=== PATIENT | female | born 1950 | race Caucasian/White ===

== ENCOUNTER → 2017-01-05 | Outpatient (CLI) | payer MEDICARE ==
--- NOTE | 2017-01-05 11:41 | US ---
EXAMINATION TYPE: US abdomen complete DATE OF EXAM: 01/05/2017 10:14 AM COMPARISON: NONE CLINICAL HISTORY: R10.9 ABD PAIN. Stomach and bowel issues, cholecystectomy, rt flank pain EXAM MEASUREMENTS: Liver Length: 11.7 cm Gallbladder Wall: N/A CBD: 0.7 cm Spleen: 7.3 cm Right Kidney: 9.2 x 3.7 x 3.9 cm Left Kidney: 9.5 x 4.7 x 4.9 cm Pancreas: tail obscured by bowel gas but areas seen appear wnl Liver: wnl Gallbladder: surgically absent CBD: wnl Spleen: wnl Right Kidney: 4.1cm complex cystic area seen, posterior enhancement noted Left Kidney: wnl Upper IVC: wnl Abd Aorta: wnl The liver is homogenous. The intrahepatic portion of the IVC and visualized abdominal aorta are with in normal limits. Gallbladder is surgically absent. Common bile duct is unremarkable after cholecyst ectomy. The visualized portions of the pancreas are homogenous. The spleen is unremarkable. Kidney s are free of hydronephrosis. Lower pole level right kidney there is partially exophytic heterogeneou s hypoechoic lesion with increased through transmission measuring 4.1 x 3.5 x 3.6 cm could reflect de bris-filled cyst but solid lesion or neoplasm needs to be excluded and follow-up is advised. IMPRESSION: A 4.1 cm nonsimple cyst lower pole level right kidney noted, favor hemorrhagic or protein aceous cyst. Solid lesion or neoplasm is not excluded. Follow-up multiphasic contrast-enhanced renal protocol CT or MRI is advised to better evaluate and characterize.
--- NOTE | 2017-01-05 11:42 | US ---
EXAMINATION TYPE: US pelvic complete DATE OF EXAM: 01/05/2017 9:03 AM COMPARISON: NONE CLINICAL HISTORY: R10.9 ABD CHANDANA; chronic UTI TECHNIQUE: Transabdominal (TA) pelvic ultrasound. Date of LMP: NA EXAM MEASUREMENTS: Uterus: 3.7 x 2.6 x 1.6 cm Endometrial Stripe: 0.2 cm Right Ovary: 1.8 x 1.3 x 0.8 cm Left Ovary: 1.6 x 1.3 x 1.0 cm 1. Uterus: Anteverted 2. Endometrium: wnl post menopause 3. Right Ovary: wnl 4. Left Ovary: wnl 5. Bilateral Adnexa: wnl 6. Posterior cul-de-sac: wnl 7. Bladder is wnl; bilateral ureteral jets were seen and post void bladder volume = 9.0ml (wnl). Bladder is well-distended without suspicious intraluminal mass or wall thickening. Bilateral distal u reter jets are noted. Minimal residual urine is seen after voiding. IMPRESSION: Unremarkable study.
== END | disposition home or self-care (01) ==
LOC: RADUSWWP 08:53
PROVIDERS: ATTEND Internal Medicine Gastroenterology
DX: N28.1 Cyst of kidney, acquired (principal); R10.9 Unspecified abdominal pain
CPT/HCPCS: 76700; 76856

== ENCOUNTER → 2017-01-21 | Outpatient (CLI) | payer MEDICARE ==
[2017-01-21 11:30] LABS: Blood Urea Nitrogen 20 mg/dL (7-17); Non-African American GFR(MDRD) >60 (>60 ml/min/1.73 sqM)
--- NOTE | 2017-01-21 13:34 | CT ---
EXAMINATION TYPE: CT urogram wo/w con DATE OF EXAM: 01/21/2017 1:13 PM COMPARISON: NONE INDICATION: Hematuria DLP: 643.30 mGycm, Automated exposure control for dose reduction was used. CONTRAST: 100 ml mL of Omnipaque 300. Study performed without Oral Contrast TECHNIQUE: Axial images were obtained from above the diaphragm to the pubic rami in the axial plane a t 5 mm thick sections. Reconstructed images are reviewed on the computer in the coronal plane. FINDINGS: Limited CT sections are obtained the lung bases. The lung bases are clear. CT ABDOMEN: Liver: Normal Spleen: Normal Pancreas: Normal Adrenal glands: The adrenal glands are normal. Gallbladder: Surgically absent Kidneys: No masses are evident. No hydronephrosis is present. There is a 2.9 cm cyst measuring 14 H [place] units along the inferior anterior pole right kidney. There is a retrocaval right renal deion ry. A 0.3 cm calcification is within the mid upper right kidney. 0.2 cm calcifications at the inferior po le right kidney. A posterior mid pole right kidney calcification may also be present measuring 0.3 cm . No hydronephrosis is evident. No left renal stones are identified. Ureters follow a normal caliber course and contour to the urinary bladder on the axial images. Three- D reconstructed images are reviewed which are unremarkable. Kidneys renal collecting system and urete rs fill normal on the Three-D reconstructed images. Aorta: Vascular calcification is within the aorta. There is somewhat tortuous with the scoliosis. Inferior vena cava: Normal. CT PELVIS: Loops of bowel within the abdomen and pelvis are normal. Appendix: Not identified Urinary bladder: Normal. Genitourinary structures: Uterus and ovaries are not identified. Osseous structures: No suspicious lytic or sclerotic lesions. Right hip prosthesis is present. Facet changes are through the lumbar spine. Spondylosis is within the visualized spine. IMPRESSIONS: 1. Nonobstructing right renal stones. 2. Urogram portion of the study appears normal. 3. Right renal cyst
== END | disposition home or self-care (01) ==
LOC: RADCTMAIN 10:55
PROVIDERS: ATTEND Urology
DX: N20.0 Calculus of kidney (principal); N28.1 Cyst of kidney, acquired
CPT/HCPCS: 82565; 84520; 74178; 36415; 74400; Q9967

== ENCOUNTER → 2017-08-04 | Outpatient (CLI) | payer MEDICARE ==
--- NOTE | 2017-08-04 12:59 | FL ---
EXAMINATION TYPE: FL barium swallow DATE OF EXAM: 08/04/2017 CLINICAL HISTORY: Dysphagia and globus sensation TECHNIQUE: A double contrast esophagram is performed utilizing air and barium. A total of 1.2 minut es of fluoroscopic time was utilized during procedure with 98 images saved. COMPARISON: None FINDINGS: The esophagus shows normal motility and emptying into the stomach on supine imaging with de layed secondary wave and tertiary contractions on supine imaging resulting in blunted propulsion with a need for upright positioning to pass residual ingested barium. No evidence of hiatal hernia or st ricture noted. Multilevel protrusions current osteophytes are seen of the anterior cervical spine chito cing impression upon the posterior esophagus at multiple levels. No significant gastroesophageal refl ux was seen during real time performance of this study. IMPRESSION: 1. No evidence of esophageal stricture or focal outpouching. Protuberant anterior osteophytes impress upon the posterior esophagus at multiple levels and may contribute to the patient's globus sensation and dysphasia. 2. Findings suggestive of presbyesophagus.
== END | disposition home or self-care (01) ==
LOC: RADFLWHC 10:21
PROVIDERS: ATTEND Family Medicine
DX: R07.0 Pain in throat (principal)
CPT/HCPCS: 74220

== ENCOUNTER → 2018-02-02 | Outpatient (CLI) | payer MEDICARE ==
--- NOTE | 2018-02-03 10:40 | MM ---
Reason for exam: screening (asymptomatic). Last mammogram was performed 1 year and 3 months ago. History: Patient is postmenopausal, has history of other cancer at age 58, and is nulliparous. Physical Findings: A clinical breast exam by your physician is recommended on an annual basis and results should be correlated with mammographic findings. MG 3D Screening Mammo W/Cad Bilateral CC and MLO view(s) were taken. Prior study comparison: November 11, 2016, mammogram, performed at [facility]. November 04, 2015, mammogram, performed at [facility]. The breast tissue is heterogeneously dense. This may lower the sensitivity of mammography. No significant changes when compared with prior studies. ASSESSMENT: Benign, BI-RAD 2 RECOMMENDATION: Routine screening mammogram of both breasts in 1 year.
== END | disposition home or self-care (01) ==
LOC: RADMAMWWP 12:52
PROVIDERS: ATTEND Obstetrics & Gynecology
DX: Z12.31 Encounter for screening mammogram for malignant neoplasm of breast (principal)
CPT/HCPCS: 77063; 77067

== ENCOUNTER → 2018-07-19 | Outpatient (CLI) | payer MEDICARE ==
--- NOTE | 2018-07-19 15:56 | US ---
EXAMINATION TYPE: US kidneys/renal and bladder DATE OF EXAM: 07/19/2018 COMPARISON: CT 01/21/2017, US 01/05/2017 CLINICAL HISTORY: N20.0 kidney stone. History of right cyst EXAM MEASUREMENTS: Right Kidney: 8.4 x 3.7 x 4.9 cm Left Kidney: 9.4 x 4.2 x 4.6 cm Right Kidney: No hydronephrosis. Cystic area lower pole measuring 4.2 x 3.8 x 3.6 cm. This is overall similar to the prior ultrasound of 01/05/2017. Left Kidney: No hydronephrosis. Bladder: wnl Bilateral Jets seen: Yes There is no evidence for hydronephrosis at this point in time. No nephrolithiasis is seen. The urin joaquim bladder is anechoic. Bilateral ureteral jets are seen. IMPRESSION: Similar-appearing large left renal cyst measuring up to 4.2 cm in comparison to exam of 2017. No hydr onephrosis or nephrolithiasis bilaterally.
== END | disposition home or self-care (01) ==
LOC: RADUSWWP 14:53
PROVIDERS: ATTEND Urology
DX: N28.1 Cyst of kidney, acquired (principal)
CPT/HCPCS: 76770